=== PATIENT | female | born 1980 | race Caucasian/White ===

== ENCOUNTER 2017-10-31 10:37 | Outpatient (REF) | payer MEDICAID, SELFPAY ==
[2017-10-31 13:44] LABS: FREE T4 1.56 ng/dL (0.76-1.46)
== END 2017-10-31 10:57 ==
LOC: NCHCN 10:37
PROVIDERS: PCP Nurse Practitioner; Visit Provider Nurse Practitioner
DX: E03.9 Hypothyroidism, unspecified (principal)
CPT/HCPCS: 84439; 84443

== ENCOUNTER 2018-06-11 16:17 | Outpatient (REF) | payer MEDICAID, SELFPAY ==
[2018-06-11 20:40] LABS: TSH (W/Ref FT4) 3.04 uIU/mL (0.358-3.74)
[2018-06-11 20:54] LABS: Vitamin D 25 Total 15.3 ng/ml (30-100)
== END 2018-06-11 16:37 ==
LOC: NCHCN 16:17
PROVIDERS: PCP Nurse Practitioner; Visit Provider Nurse Practitioner
DX: E03.9 Hypothyroidism, unspecified (principal); E55.9 Vitamin D deficiency, unspecified
CPT/HCPCS: 82306; 84443

== ENCOUNTER 2019-08-07 14:00 | Outpatient (REF) | payer MEDICAID, SELFPAY ==
[2019-08-07 21:19] LABS: ALT 25 U/L (14-59); AST 11 U/L (15-37); Albumin 3.3 g/dL (3.4-5.0); Alkaline Phosphatase 106 U/L (46-116); BUN 12 mg/dL (7-18); Bilirubin, Total 0.2 mg/dL (0.2-1.0); CREATININE 0.85 mg/dL (0.55-1.02); Calcium 8.7 mg/dL (8.5-10.1); Chloride 107 mmol/L (98-107); Glucose 129 mg/dL (74-106); Potassium 4.2 mmol/L (3.5-5.1); Sodium 141 mmol/L (136-145); TSH (W/Ref FT4) 6.94 uIU/mL (0.36-3.74); Total Protein 7.2 g/dL (6.4-8.2)
[2019-08-07 21:54] LABS: FREE T4 0.84 ng/dL (0.76-1.46)
== END 2019-08-07 14:20 ==
LOC: NCHCN 14:00
PROVIDERS: PCP Nurse Practitioner; Visit Provider Nurse Practitioner
DX: E03.9 Hypothyroidism, unspecified (principal)
CPT/HCPCS: 80053; 84439; 84443

== ENCOUNTER 2019-11-28 11:30 | Outpatient (REF) | payer MEDICAID, SELFPAY ==
[2019-11-28 19:32] LABS: Calculated LDL 139 mg/dL (<100); Cholesterol 193 mg/dL (<200); HDL Cholesterol 35 mg/dL (40-60); TSH (W/Ref FT4) 6.03 uIU/mL (0.36-3.74); Triglyceride 97 mg/dL (<150)
[2019-11-28 19:39] LABS: Vitamin D 25 Total 17.6 ng/ml (30-100)
[2019-11-28 20:15] LABS: FREE T4 0.89 ng/dL (0.76-1.46)
== END 2019-11-28 11:50 ==
LOC: NCHCN 11:30
PROVIDERS: PCP Nurse Practitioner; Visit Provider Nurse Practitioner
DX: E03.9 Hypothyroidism, unspecified (principal); E55.9 Vitamin D deficiency, unspecified; E78.5 Hyperlipidemia, unspecified
CPT/HCPCS: 80061; 82306; 84439; 84443

== ENCOUNTER 2020-07-23 11:51 | Outpatient (REF) | payer MEDICAID, SELFPAY ==
[2020-07-23 17:14] LABS: ALT 21 U/L (14-59); AST 12 U/L (15-37); Albumin 3.4 g/dL (3.4-5.0); Alkaline Phosphatase 126 U/L (46-116); Anion Gap 9.6 mmol/L (3-11); BUN 9 mg/dL (7-18); Bilirubin, Total 0.3 mg/dL (0.2-1.0); CO2 25.4 mmol/L (21.0-32.0); CREATININE 0.7 mg/dL (0.55-1.02); Calcium 9.3 mg/dL (8.5-10.1); Chloride 105 mmol/L (98-107); Glucose 103 mg/dL (74-106); Potassium 4.4 mmol/L (3.5-5.1); Sodium 140 mmol/L (136-145); Total Protein 7.5 g/dL (6.4-8.2)
[2020-07-23 18:06] LABS: FREE T4 0.93 ng/dL (0.76-1.46)
== END 2020-07-23 11:52 | disposition home or self-care (01) ==
LOC: NCHCN 11:51
PROVIDERS: PCP Nurse Practitioner; Visit Provider Family Medicine
DX: E03.9 Hypothyroidism, unspecified (principal); E55.9 Vitamin D deficiency, unspecified; R73.9 Hyperglycemia, unspecified
CPT/HCPCS: 80053; 82306; 84439; 84443

== ENCOUNTER 2022-04-27 15:37 | Outpatient (REF) | payer MEDICAID, SELFPAY ==
[2022-04-27 14:52] LABS: Abs Immature Grans 0.05 10^3/uL (0.0-0.06); Absolute Eosinophil Count 0.48 10^3/uL (0.0-0.7); Absolute Lymphocyte Count 2.96 10^3/uL (1.2-3.4); Absolute Monocyte Count 0.78 10^3/uL (0.1-0.8); Basophils % 0.9; Eosinophils % 4.5; HCT 46.4 % (36.0-46.0); HGB 14.6 g/dL (11.2-15.7); Immature Grans % 0.5; Lymphocytes % 27.7; MCH 27.2 pg (27.0-33.0); MCHC 31.5 % (32.0-36.0); MCV 87 fL (80-95); MPV 10.3 fL (8.0-11.0); Monocytes % 7.3; Neutrophils % 59.1; Platelet Count 392 10^3/uL (130-400); RBC 5.36 10^6/uL (3.93-5.22); RDW 13.7 % (11.7-14.6); RDW-SD 43.8 fL; WBC 10.67 10^3/uL (4.4-10.8)
[2022-04-27 15:20] LABS: ALT 29 U/L (14-59); AST 14 U/L (15-37); Albumin 3.9 g/dL (3.4-5.0); Alkaline Phosphatase 119 U/L (46-116); Anion Gap 11.1 mmol/L (3-11); BUN 12 mg/dL (7-18); Bilirubin, Total 0.3 mg/dL (0.2-1.0); CO2 23.9 mmol/L (21.0-32.0); CREATININE 0.8 mg/dL (0.55-1.02); Calcium 9.4 mg/dL (8.5-10.1); Calculated LDL 141 mg/dL (<100); Chloride 105 mmol/L (98-107); Cholesterol 204 mg/dL (<200); Glucose 106 mg/dL (74-106); HDL Cholesterol 43 mg/dL (40-60); Sodium 140 mmol/L (136-145); TSH (W/Ref FT4) 7.61 uIU/mL (0.36-3.74); Total Protein 8.2 g/dL (6.4-8.2); Triglyceride 104 mg/dL (<150)
[2022-04-27 15:26] LABS: Hemoglobin A1C 5.8 % (<5.7)
[2022-04-27 15:31] LABS: Vitamin D 25 Total 17.4 ng/mL (30-100)
[2022-04-27 15:40] LABS: FREE T4 0.93 ng/dL (0.76-1.46)
== END 2022-04-27 15:38 | disposition home or self-care (01) ==
LOC: NCHCN 15:37
PROVIDERS: PCP Nurse Practitioner; Visit Provider Nurse Practitioner Family
DX: R73.9 Hyperglycemia, unspecified (principal); F41.8 Other specified anxiety disorders; K21.9 Gastro-esophageal reflux disease without esophagitis; E55.9 Vitamin D deficiency, unspecified; E78.5 Hyperlipidemia, unspecified; G47.33 Obstructive sleep apnea (adult) (pediatric); E03.9 Hypothyroidism, unspecified
CPT/HCPCS: 80053; 80061; 82306; 83036; 84439; 84443; 85025

== ENCOUNTER 2022-07-05 16:18 | Outpatient (REF) | payer MEDICAID, SELFPAY ==
--- NOTE | 2022-07-05 12:10 | PAPFT_PTH ---
PATIENT: Starr Euceda LOC: [facility]#:[id number] AGE/SX: 41/F ROOM: RE07/05/[address]: JIMBO HUTSON NP : 1980 BED: DIS: 07/05/2022 SPEC #: [id number] RECD: 07/05/22 17:15 STATUS: TONY OBREGON #: [id number] LAVELL: 07/05/22 12:[address]: JIMBO HUTSON DEPT: [facility] Cytology RECD BY: Anu Wilkes ENTERED: 07/05/22 17:15 SP TYPE: PAPFT OTHR DR: Rosangela Wu Tissues: 1 - CX/ENDOCX FOR PAP SMEARS Procedures: PAP THIN PREP/[facility] Screening HPV DNA PROBE Comments: [id number] (CHLAMYDIA/GC) (HPV 16 & 18/45)
[2022-07-05 16:58] LABS: TSH 8.03 uIU/mL (0.36-3.74)
[2022-07-06 14:50] LABS: Chlamydia Result Negative (Negative); GC Result Negative (Negative)
== END 2022-07-05 16:19 | disposition home or self-care (01) ==
LOC: NCHCN 16:18
PROVIDERS: PCP Nurse Practitioner; Visit Provider Nurse Practitioner Family
DX: Z00.00 Encounter for general adult medical examination without abnormal findings (principal); R94.6 Abnormal results of thyroid function studies; Z12.4 Encounter for screening for malignant neoplasm of cervix; Z11.3 Encounter for screening for infections with a predominantly sexual mode of transmission; Z11.51 Encounter for screening for human papillomavirus (HPV); R87.810 Cervical high risk human papillomavirus (HPV) DNA test positive
CPT/HCPCS: 87491; 87591; 88142; 84443; 87624

== ENCOUNTER 2022-07-08 00:18 | Outpatient (CLI) | payer MEDICAID, SELFPAY ==
--- NOTE | 2022-07-08 | DI.MAMMO_ITS ---
Exam(s) MAMMO SCREENING EXAM: MAMMO SCREENING CLINICAL HISTORY: SCREENING FOR BREAST CANCER Z12.39 [facility] Z00.00 TECHNIQUE: Mammograms were interpreted according to the usual protocol including computer analysis w [employer] CAD system, tomosynthesis and C-view imaging. COMPARISON: None. Baseline examination. FINDINGS: The breasts are composed of mainly fatty density , Breast Density category A. No suspicious masses or suspicious microcalcifications are seen. No skin thickening or abnormal axillary lymph nodes are seen. There has been no significant change from prior exams. IMPRESSION: BI-RADS Category 1, Negative mammogram Yearly screening mammography is recommended. Breast Density - Category A, fatty density. A negative radiographic report should not delay biopsy if a dominant or clinically suspicious mass is present. Up to ten percent of cancers are not identified on mammography. A negative report may reinforce clinical impression. Adenosis and dense breasts may obscure an underlying neoplasm. False positive reports average 6 to 10%. Patient will receive a letter notifying them of these results.
== END 2022-07-08 00:38 ==
PROVIDERS: PCP Nurse Practitioner Family; Visit Provider Nurse Practitioner Family
DX: Z12.31 Encounter for screening mammogram for malignant neoplasm of breast (principal)
CPT/HCPCS: 77063; 77067

== ENCOUNTER 2022-12-15 18:52 | Outpatient (REF) | payer MEDICAID, SELFPAY ==
[2022-12-15 20:32] LABS: Hemoglobin A1C 5.9 % (<5.7)
[2022-12-15 20:34] LABS: TSH (W/Ref FT4) 12.42 uIU/mL (0.36-3.74)
[2022-12-15 20:45] LABS: Vitamin D 25 Total 21.2 ng/mL (30-100)
[2022-12-15 21:03] LABS: FREE T4 0.91 ng/dL (0.76-1.46)
== END 2022-12-15 18:53 | disposition home or self-care (01) ==
LOC: NCHCN 18:52
PROVIDERS: PCP Nurse Practitioner Family; Visit Provider Nurse Practitioner Family
DX: F41.8 Other specified anxiety disorders (principal); E03.9 Hypothyroidism, unspecified; G47.33 Obstructive sleep apnea (adult) (pediatric); E55.9 Vitamin D deficiency, unspecified
CPT/HCPCS: 82306; 83036; 84439; 84443

== ENCOUNTER 2024-02-05 13:41 | Outpatient (REF) | payer MEDICAID, SELFPAY ==
[2024-02-05 20:20] LABS: ALT 17 U/L (14-59); AST 16 U/L (15-37); Albumin 3.4 g/dL (3.4-5.0); Alkaline Phosphatase 119 U/L (46-116); Anion Gap 4.2 mmol/L (3-11); BUN 13 mg/dL (7-18); CO2 30.8 mmol/L (21.0-32.0); CREATININE 0.8 mg/dL (0.55-1.02); Calcium 8.9 mg/dL (8.5-10.1); Calculated LDL 111 mg/dL (<100); Chloride 105 mmol/L (98-107); Cholesterol 177 mg/dL (<200); Estimated GFR 92.54 (mL/min/1.73m2); Glucose 85 mg/dL (74-106); HDL Cholesterol 52 mg/dL (40-60); Potassium 4.8 mmol/L (3.5-5.1); Sodium 140 mmol/L (136-145); Total Protein 7.6 g/dL (6.4-8.2); Triglyceride 73 mg/dL (<150)
[2024-02-05 20:41] LABS: Hemoglobin A1C 6.2 % (<5.7)
[2024-02-05 20:49] LABS: FREE T4 0.96 ng/dL (0.76-1.46)
== END 2024-02-05 13:42 | disposition home or self-care (01) ==
LOC: NCHCN 13:41
PROVIDERS: PCP Nurse Practitioner Family; Visit Provider Nurse Practitioner Family
DX: E78.5 Hyperlipidemia, unspecified (principal); E03.9 Hypothyroidism, unspecified; R73.03 Prediabetes
CPT/HCPCS: 80053; 80061; 83036; 84439; 84443